=== PATIENT | male | born 1940 | race Caucasian/White ===

== ENCOUNTER → 2017-05-20 | Outpatient (CLI) | payer OTHER ==
[~2017-05-20] MED LIST: COUMADIN PO; LISINOPRIL PO; NEXIUM PO; TOPROL XL PO; ZOCOR PO
--- NOTE | ~2017-05-20 | CT71 ---
[facility] A Service of [facility] RADIOLOGY TEXT RESULTS PATIENT: MARY LEMUS [facility] UNIT #: [id number] AGE: [address]: Angélica Salter APRN SEX: M ORDER DR: [id number] [facility] [address] [place], [place] [address] [id number] O MR#: [id number] #: [id number] NAME: MARY LEMUS : 1940 SEX: M STUDY DATE/TIME: 05/20/2017 9:59 UNIT: [facility] ROOM: STUDY DESCRIPTION: CT Head Wo Contrast Attending Physician: Angélica Salter A.P.R.N. Referring Physician: Angélica Salter A.P.R.N. Ordering Physician: Angélica Salter A.P.R.N. Primary Care Physician: Angélica Salter A.P.R.N. MEDICAL IMAGING REPORT This report is preliminary unless electronic signature is present EXAM CT of the head without contrast. INDICATIONS Headaches. These have been present for 1 month. Patient is on Coumadin. TECHNIQUE Axial CT images were obtained from the vertex of the skull through the skull base, no intravenous contrast material was administered. This CT exam was performed with one or more of the following radiation dose reduction techniques: automatic exposure control, adjustment of mA and/or kV according to patient size, and iterative reconstruction. FINDINGS No acute cranial hemorrhage is identified. Patient does have some mild atrophy in keeping with the age of 76. There is no midline shift or mass effect. Patient does have some areas of decreased attenuation within the basal ganglia bilaterally which I suspect reflects small vessel disease. There is extensive atherosclerotic involvement of the cavernous carotid arteries. Patient is noted to have mucosal thickening with partial opacification of the ethmoid sinuses as well as near complete opacification of the left sphenoid sinus. Additional mucosal thickening is seen within the right maxillary sinus and sphenoid sinuses. Mastoid air cells appear clear. No aggressive osseous abnormalities are identified. No focal soft tissue abnormalities are seen IMPRESSION 1. No acute intracranial process identified. Specifically there is no evidence of acute hemorrhage, mass lesion or acute infarct. 2. Mild cerebral atrophy, as well as some asymmetric areas of decreased attenuation seen within the periventricular and deep white matter STS. [facility] A Service of [facility] RADIOLOGY TEXT RESULTS PATIENT: MARY LEMUS LOCATION: [facility] : 38 UNIT #: [id number] AGE: [address]: Angélica Salter APRN SEX: M ORDER DR: likely reflecting some small vessel disease. 3. Extensive sinus inflammatory changes as noted above. Dictated by... Dian Soria M.D. THIS IS AN ELECTRONICALLY VERIFIED REPORT Dian Soria M.D. at 05/21/2017 5:25 PM TYREE/unique TD: 05/20/2017 21:23 JOB #: [id number] MEDICAL IMAGING REPORT Page 1 of 1 COPY
== END | disposition home or self-care (01) ==
LOC: CCAT 09:10
DX: R51 Headache (principal); G31.9 Degenerative disease of nervous system, unspecified; J34.9 Unspecified disorder of nose and nasal sinuses; Z79.01 Long term (current) use of anticoagulants
CPT/HCPCS: 70450